=== PATIENT | male | born 1960 | race African-American/Black ===

== ENCOUNTER 2017-02-13 09:11 | Emergency (ER) | payer MEDICAID ==
[~2017-02-13] VITALS: Ht 188 cm; Wt 137.0 kg
[~2017-02-13 09:11] MED LIST: ALLO100T; AMLO10TA4 PO; HYDR-519 PO; METF500T4 PO; TRAM50TA3
[2017-02-13 10:27] VITALS: BP 155/99
[2017-02-13] MEDS ORDERED: IBUPROFEN 600MG TABLET PO ONE (10:30)
== END 2017-02-13 11:24 | disposition home or self-care (01) ==
LOC: ER 09:11
DX: M79.641 Pain in right hand (principal); I10 Essential (primary) hypertension; E11.9 Type 2 diabetes mellitus without complications; G47.30 Sleep apnea, unspecified; M10.9 Gout, unspecified; F12.10 Cannabis abuse, uncomplicated; Z87.891 Personal history of nicotine dependence
CPT/HCPCS: 73130; 99284; A4565

== ENCOUNTER 2018-12-12 01:51 | Emergency (ER) | payer MEDICAID ==
[~2018-12-12] VITALS: Ht 188 cm; Wt 127.0 kg
[~2018-12-12 01:51] MED LIST changes: +METF-414 PO; -METF500T4 PO
[2018-12-12] MEDS ORDERED: KETOROLAC 60MG/2ML VIAL IM ONE (03:00)
[2018-12-12] MEDS ORDERED: HYDROCODONE/ACETAMINOPHEN 5/325MG TABLET PO ONE (03:00)
[2018-12-12 03:38] VITALS: BP 121/80
== END 2018-12-12 04:08 | disposition home or self-care (01) ==
LOC: ER 01:51
DX: M25.572 Pain in left ankle and joints of left foot (principal); M10.9 Gout, unspecified; F12.10 Cannabis abuse, uncomplicated; F17.210 Nicotine dependence, cigarettes, uncomplicated; E11.9 Type 2 diabetes mellitus without complications; I10 Essential (primary) hypertension
CPT/HCPCS: 96372; 99283; J1885

== ENCOUNTER 2019-12-06 12:26 | Emergency (ER) | payer MEDICAID ==
[~2019-12-06] VITALS: Ht 188 cm; Wt 117.9 kg
[2019-12-06] MEDS ORDERED: KETOROLAC 60MG/2ML VIAL IM ONE (13:00)
[2019-12-06 13:21] VITALS: BP 139/86
== END 2019-12-06 13:26 | disposition home or self-care (01) ==
LOC: ER 12:26
DX: M10.9 Gout, unspecified (principal); E11.9 Type 2 diabetes mellitus without complications; E78.00 Pure hypercholesterolemia, unspecified; F12.10 Cannabis abuse, uncomplicated; Z79.899 Other long term (current) drug therapy; Z88.8 Allergy status to other drugs, medicaments and biological substances
CPT/HCPCS: 96372; 99283; J1885

== ENCOUNTER 2020-04-02 03:21 | Emergency (ER) | payer MEDICAID ==
[~2020-04-02] VITALS: Ht 188 cm; Wt 118.0 kg
[2020-04-02] MEDS ORDERED: KETOROLAC 60MG/2ML VIAL IM ONE (04:30)
[2020-04-02 04:34] VITALS: BP 152/95
== END 2020-04-02 04:40 | disposition home or self-care (01) ==
LOC: ER 03:21
DX: M10.072 Idiopathic gout, left ankle and foot (principal)
CPT/HCPCS: 96372; 99283; J1885

== ENCOUNTER 2020-06-25 10:09 | Emergency (ER) | payer MEDICAID ==
[~2020-06-25] VITALS: Ht 188 cm; Wt 113.0 kg
[2020-06-25] MEDS ORDERED: IBUP-2030 MT (10:25)
[2020-06-25] MEDS ORDERED: ONDANSETRON 4MG ODT PO ONE (10:30)
[2020-06-25] MEDS ORDERED: HYDROCODONE/ACETAMINOPHEN 5/325MG TABLET PO ONE (10:30)
[2020-06-25] MEDS ORDERED: KETOROLAC 60MG/2ML VIAL IM ONE (10:30)
[2020-06-25 10:51] VITALS: BP 105/80
== END 2020-06-25 10:51 | disposition home or self-care (01) ==
LOC: ER 10:16
DX: M10.062 Idiopathic gout, left knee (principal); E11.9 Type 2 diabetes mellitus without complications; I10 Essential (primary) hypertension; G47.30 Sleep apnea, unspecified; F12.10 Cannabis abuse, uncomplicated; Z79.84 Long term (current) use of oral hypoglycemic drugs
CPT/HCPCS: 96372; 99283; J1885; Q0162

== ENCOUNTER 2020-07-31 11:46 | Emergency (ER) | payer MEDICAID ==
[~2020-07-31] VITALS: Ht 188 cm; Wt 118.0 kg
[~2020-07-31 11:46] MED LIST changes: +IBUP-2030 MT
[2020-07-31] MEDS ORDERED: KETOROLAC 30MG/ML VIAL IM ONE (12:00)
[2020-07-31] MEDS ORDERED: NAPR-1176 MT (12:00)
[2020-07-31 12:20] VITALS: BP 144/99
== END 2020-07-31 12:21 | disposition home or self-care (01) ==
LOC: ER 11:57
DX: M10.9 Gout, unspecified (principal); E11.9 Type 2 diabetes mellitus without complications; F12.10 Cannabis abuse, uncomplicated; Z79.899 Other long term (current) drug therapy
CPT/HCPCS: 96372; 99283; J1885; Z7610

== ENCOUNTER 2021-06-28 13:50 | Emergency (ER) | payer MEDICAID, OTHER ==
[~2021-06-28] VITALS: Ht 188 cm; Wt 116.0 kg
[~2021-06-28 13:50] MED LIST changes: +INDO50CA98 MT; +NAPR-1176 MT; +P20 MT
[2021-06-28] MEDS ORDERED: KETOROLAC 30MG/ML VIAL IM ONE (15:15)
[2021-06-28] MEDS ORDERED: INDO50CA98 MT (15:40)
[2021-06-28 16:01] VITALS: BP 176/92
[2021-06-28] MEDS ORDERED: HYDR-4001 MT (16:06)
== END 2021-06-28 16:04 | disposition home or self-care (01) ==
LOC: ER 13:50
DX: M25.521 Pain in right elbow (principal); M10.9 Gout, unspecified; I10 Essential (primary) hypertension; E11.9 Type 2 diabetes mellitus without complications; G47.30 Sleep apnea, unspecified; F12.10 Cannabis abuse, uncomplicated; Z98.890 Other specified postprocedural states; Z79.84 Long term (current) use of oral hypoglycemic drugs; Z88.8 Allergy status to other drugs, medicaments and biological substances
CPT/HCPCS: 73070; 82962; 96372; 99283; J1885; A4565

== ENCOUNTER 2021-07-18 07:09 | Emergency (ER) | payer OTHER ==
[~2021-07-18] VITALS: Ht 188 cm; Wt 118.0 kg
[~2021-07-18 07:09] MED LIST changes: +HYDR-4001 MT
[2021-07-18] MEDS ORDERED: COLCHICINE 0.6MG TABLET PO ONE (08:45)
[2021-07-18] MEDS ORDERED: MORPHINE SULFATE 4 MG/ML CPJ (NOT FOR IM USE) IV ONE (08:45)
[2021-07-18] MEDS ORDERED: KETOROLAC 15MG/ML VIAL IV ONE (08:45)
[2021-07-18 08:53] LABS: BASOPHILS % 0.3 % (0.0-2.0); EOSINOPHILS % 0.3 % (0.0-5.0); HEMOGLOBIN. 12.8 g/dL (14.0-18.0); LYMPHOCYTES % 15.8 % (20.0-50.0); MEAN CORPUSCULAR HEMOGLOBIN 29.9 pg (28.0-32.0); MEAN PLATELET VOLUME 7.1 fl (7.4-10.4); MONOCYTES % 10.3 % (2.0-8.0); NEUTROPHILS % 73.3 % (40.0-76.0); PLATELET 219 x1000/uL (130-400); RED BLOOD CELL COUNT 4.28 mill/uL (4.7-6.1); RED CELL DISTRIBUTION WIDTH 14.9 % (11.6-14.6)
[2021-07-18 09:06] LABS: CHLORIDE 105 mEq/L (98-107)
[2021-07-18 09:09] LABS: ETHANOL BLOOD < 10 mg/dL
[2021-07-18] MEDS ORDERED: HYDR-4001 MT (10:59)
[2021-07-18] MEDS ORDERED: COLC0.6C3 MT (10:59)
[2021-07-18 16:18] VITALS: BP 165/95
== END 2021-07-18 17:08 | disposition home or self-care (01) ==
LOC: ER 07:09
DX: M25.522 Pain in left elbow (principal); F17.200 Nicotine dependence, unspecified, uncomplicated; F12.10 Cannabis abuse, uncomplicated; E11.9 Type 2 diabetes mellitus without complications; I10 Essential (primary) hypertension; E78.00 Pure hypercholesterolemia, unspecified; Z88.8 Allergy status to other drugs, medicaments and biological substances; Z79.899 Other long term (current) drug therapy
CPT/HCPCS: 36415; 73080; 73110; 73630; 80053; 80320; 84550; 85025; 96374; 96375; 99284; J1885; J2270; G0480

== ENCOUNTER 2021-08-30 02:13 | Emergency (ER) | payer OTHER ==
[~2021-08-30] VITALS: Ht 188 cm; Wt 120.0 kg
[~2021-08-30 02:13] MED LIST changes: +COLC0.6C3 MT
[2021-08-30] MEDS ORDERED: INDO50CA98 MT (03:49)
[2021-08-30 04:00] VITALS: BP 123/78
[2021-08-30] MEDS ORDERED: KETOROLAC 15MG/ML VIAL IM ONE (04:00)
== END 2021-08-30 04:00 | disposition home or self-care (01) ==
LOC: ER 03:09
DX: Z76.0 Encounter for issue of repeat prescription (principal); M10.9 Gout, unspecified; E11.9 Type 2 diabetes mellitus without complications; I10 Essential (primary) hypertension; E78.00 Pure hypercholesterolemia, unspecified; Z88.8 Allergy status to other drugs, medicaments and biological substances
CPT/HCPCS: 96372; 99283; J1885

== ENCOUNTER 2022-09-30 12:47 | Emergency (ER) | payer MEDICAID, OTHER ==
[~2022-09-30] VITALS: Ht 188 cm; Wt 139.0 kg
[2022-09-30 12:51] VITALS: TEMP 97.9; O2SAT 100
[2022-09-30] MEDS ORDERED: COLCHICINE 0.6MG TABLET PO ONE (13:30)
[2022-09-30] MEDS ORDERED: INDOMETHACIN 25MG CAPSULE PO ONE (13:45)
[2022-09-30] MEDS ORDERED: T3 PO (14:23)
[2022-09-30] MEDS ORDERED: COLC0.6C3 MT (14:25)
[2022-09-30] MEDS ORDERED: KETOROLAC 30MG/ML VIAL IM ONE (14:30)
[2022-09-30 15:00] VITALS: BP 123/81; PULSE 100; RESP 18
== END 2022-09-30 15:10 | disposition home or self-care (01) ==
LOC: ER 12:53
DX: M10.9 Gout, unspecified (principal); E11.9 Type 2 diabetes mellitus without complications; E78.00 Pure hypercholesterolemia, unspecified; I10 Essential (primary) hypertension; Z79.899 Other long term (current) drug therapy
CPT/HCPCS: 99283; 96372; J1885

== ENCOUNTER 2024-03-23 13:55 | Emergency (ER) | payer MEDICAID, OTHER ==
[~2024-03-23] VITALS: Ht 188 cm; Wt 136.0 kg
[~2024-03-23 13:55] MED LIST changes: +T3 PO
[2024-03-23 14:57] VITALS: O2SAT 96
[2024-03-23] MEDS ORDERED: GABA-529 MT (18:34)
[2024-03-23] MEDS ORDERED: LIDO700A15 TP (18:34)
[2024-03-23] MEDS ORDERED: METH-653 MT (18:56)
[2024-03-23 18:58] VITALS: BP 124/68; PULSE 81; RESP 16; TEMP 36.78072; O2SAT 96
== END 2024-03-23 19:13 | disposition home or self-care (01) ==
LOC: ER 13:55
DX: R07.81 Pleurodynia (principal); M79.605 Pain in left leg; M25.512 Pain in left shoulder; E11.9 Type 2 diabetes mellitus without complications; E78.00 Pure hypercholesterolemia, unspecified; I10 Essential (primary) hypertension; Z88.8 Allergy status to other drugs, medicaments and biological substances; Z79.899 Other long term (current) drug therapy; Z98.890 Other specified postprocedural states; V43.52XA Car driver injured in collision with other type car in traffic accident, initial encounter; Y93.89 Activity, other specified; Y92.89 Other specified places as the place of occurrence of the external cause; Y99.8 Other external cause status
CPT/HCPCS: 71045; 73030; 73560; 99284